=== PATIENT | female | born 1985 | race Caucasian/White ===

== ENCOUNTER → 2020-03-01 | Outpatient (CLI) | payer OTHER, BC ==
[~2020-03-01] MED LIST: APIDRA; ASPI81EC; BYETTA; CRUTCH4 USE; HYDACE5 PO; INSLI100I SC; INSULANI; LEVSOD125; LEVSOD150 PO; Lantus SUBQ; METF500; MULVITMINE PO; NAPR550 PO; Norco 5-325 Ta1 EACH PO; ONDA4ODT MM; OSEL75CA PO; RXHYDACE PO; RXONDA4ODT MM; RXOXYACE PO; [UNRECOGNIZED DRUG - OTHER]
== END | disposition home or self-care (01) ==
LOC: LAB SHORT 09:51 → PLD 09:51
DX: D22.5 Melanocytic nevi of trunk (principal)
CPT/HCPCS: 88305

== ENCOUNTER → 2020-03-23 | Outpatient (CLI) | payer OTHER, BC | END | disposition home or self-care (01) | LOC: PLD 12:53 → LAB SHORT 12:53 | DX: D48.5 Neoplasm of uncertain behavior of skin (principal) | CPT/HCPCS: 88305 ==

== ENCOUNTER → 2021-07-18 | Outpatient (CLI) | payer OTHER, BC | END | disposition home or self-care (01) | LOC: LAB 11:43 → LAB SHORT 11:43 | DX: D22.5 Melanocytic nevi of trunk (principal); L82.0 Inflamed seborrheic keratosis; L70.0 Acne vulgaris | CPT/HCPCS: 88305 ==